=== PATIENT | female | born 1970 | race Caucasian/White ===

== ENCOUNTER 2017-02-22 15:28 | Emergency (ER) | payer SELFPAY ==
--- NOTE | 2017-02-22 17:12 | ER Document Report ---
HPI - HPI Patient complains to provider of: cyst on right wrist Onset: Other Onset/Duration: Gradual - 1 month Pain Level: 3 Context: 46-year-old female complaining of a large cyst on her distal radial volar right wrist for a month that didn't start bothering her until this week. Associated Symptoms: None Exacerbated by: Movement Relieved by: Denies Similar symptoms previously: No Recently seen / treated by doctor: No - ROS ROS below otherwise negative: Yes Systems Reviewed and Negative: Yes All other systems reviewed and negative - DERM Skin Color: Normal Past Medical History - General Information source: Patient - Social History Smoking Status: Current Every Day Smoker Frequency of alcohol use: None Drug Abuse: None Lives with: Spouse/Significant other Family History: Reviewed & Not Pertinent Patient has suicidal ideation: No Patient has homicidal ideation: No - Medical History Medical History: Negative Renal/ Medical History: Denies: Hx Peritoneal Dialysis Surgical Hx: Negative Vertical Provider Document - CONSTITUTIONAL Agree With Documented VS: Yes Exam Limitations: No Limitations - INFECTION CONTROL TRAVEL OUTSIDE OF THE [place] IN LAST 30 DAYS: No - HEENT HEENT: Normocephalic - NECK Neck: Supple - RESPIRATORY O2 Sat by Pulse Oximetry: 100 - MUSCULOSKELETAL/EXTREMETIES Musculoskeletal/Extremeties: MAEW, FROM, Tender - ganglion cyst distal volar right radial wrist, less than 1 cm, and a half centimeters smaller one next to it - NEURO Level of Consciousness: Awake, Alert, Appropriate Motor/Sensory: No Motor Deficit, No Sensory Deficit - DERM Integumentary: Warm, Dry Course - Vital Signs Vital signs: Temp Pulse Resp BP Pulse Ox 98.1 F 76 15 137/85 H 100 02/22/17 15:31 02/22/17 15:31 02/22/17 15:31 02/22/17 15:31 02/22/17 15:31 Procedures - Immobilization Right Wrist Time completed: 17:14 Pre-Proc Neuro Vasc Exam: Normal Immobilizer type: Ezio wrap Performed by: Provider Post-Proc Neuro Vasc Exam: Normal Alignment checked and good: Yes Discharge - Discharge Clinical Impression: ganglion cyst volar radial rt wrist Condition: Good Disposition: HOME, SELF-CARE Instructions: Ganglion Cyst ([facility]), Anti-Inflammatory Medication ([facility]) Additional Instructions: ezio wrap compression antii iflammatory medication see orthopedic doctor if the cyst doesn not shrink Please complete the patient satisfaction survey if you get one, and return it.. If you do not receive a survey, then you can go to the [facility] website, [email or web address] and place your comments about your very good care. Thank you very much. It was a pleasure being your medical provider today. Prescriptions: Ibuprofen [Motrin 800 mg Tablet] 800 mg PO Q8HP PRN #30 tablet PRN Reason: Forms: Return to Work Referrals: KENDRA KINNEY, [ACTIVE STAFF] - Follow up as needed
[2017-02-22 17:20] VITALS: BP 132/94
== END 2017-02-22 17:19 | disposition home or self-care (01) ==
LOC: ER 15:28
DX: M67.431 Ganglion, right wrist (principal)
CPT/HCPCS: 99282

== ENCOUNTER 2017-06-04 14:31 | Inpatient (IN) | payer SELFPAY ==
[2017-06-04] MEDS ORDERED: ONDANSETRON 4 MG TAB.RAPDIS PO ONE (15:45)
--- NOTE | 2017-06-04 15:45 | ER Document Report ---
ED Medical Screen (RME) - General Chief Complaint: Nausea/Vomiting Stated Complaint: VOMITING Time Seen by Provider: 06/04/17 15:44 Mode of Arrival: Ambulatory Information source: Patient Notes: This is a 46-year-old female that presents to the emergency room with nausea, vomiting and upper abdominal pain on and off for the past 4 days. Patient states she is new to the area and is previously lived in [facility]. She states that she was told that she had a "nonfunctioning gallbladder" years ago. She does describe having a HIDA scan and has been told she should have a gallbladder "taken out" in the past. She states however that she has not had any problems with it so she decided against surgery TRAVEL OUTSIDE OF THE [place] IN LAST 30 DAYS: No - Related Data Allergies/Adverse Reactions: No Known Allergies Allergy (Unverified 02/22/17 17:14) Past Medical History Renal/ Medical History: Denies: Hx Peritoneal Dialysis
[2017-06-04] MEDS ORDERED: NORMAL SALINE 1000 ML 1,000 ML IV PRN (15:46)
[2017-06-04 16:24] LABS: ABSOLUTE LYMPHOCYTES (AUTO) 0.5 10^3/uL (0.5-4.7); ABSOLUTE MONOCYTES (AUTO) 0.1 10^3/uL (0.1-1.4); BASOPHILS % (AUTO) 0.5 % (0-2); HEMATOCRIT 45.6 % (36.0-47.0); HEMOGLOBIN 15.4 g/dL (12.0-15.5); HGB HCT DIFFERENCE 0.6; LYMPHOCYTES % (AUTO) 10.9 % (13-45); MEAN CORPUSCULAR HEMOGLOBIN 30.5 pg (27.0-33.4); MEAN CORPUSCULAR HGB CONC 33.7 g/dL (32.0-36.0); MEAN CORPUSCULAR VOLUME 91 fl (80-97); MONOCYTES % (AUTO) 1.1 % (3-13); RED BLOOD COUNT 5.03 10^6/uL (3.72-5.28); RED CELL DISTRIBUTION WIDTH 15.3 % (11.5-14.0); SEGMENTED NEUTROPHILS % (AUTO) 86.5 % (42-78); WHITE BLOOD COUNT 4.6 10^3/uL (4.0-10.5)
[2017-06-04 16:31] LABS: ALKALINE PHOSPHATASE 328 U/L (38-126); ANION GAP 14 (5-19); BILIRUBIN,DIRECT 8.2 mg/dL (0.0-0.4); BILIRUBIN,TOTAL 9.5 mg/dL (0.2-1.3); BLOOD UREA NITROGEN 9 mg/dL (7-20); CALCIUM 9.4 mg/dL (8.4-10.2); CARBON DIOXIDE 18 mmol/L (22-30); CHLORIDE 106 mmol/L (98-107); GLUCOSE 106 mg/dL (75-110); LIPASE 40.6 U/L (23-300); POTASSIUM 4.2 mmol/L (3.6-5.0); SODIUM 138.4 mmol/L (137-145); TOTAL PROTEIN 7.5 g/dL (6.3-8.2)
[2017-06-04 16:38] LABS: ASPARTATE AMINO TRANSFERASE 1278 U/L (14-36)
[2017-06-04 16:39] LABS: ALANINE AMINOTRANSFERASE 1703 U/L (9-52)
--- NOTE | 2017-06-04 18:36 | ER Document Report ---
ED General - General Chief Complaint: Nausea/Vomiting Stated Complaint: VOMITING Time Seen by Provider: 06/04/17 15:44 Mode of Arrival: Ambulatory Notes: Patient is a 46-year-old female with a past history of polysubstance abuse including heroin abuse although she denies any recent use to me on initial assessment, prior history of a "nonfunctional gallbladder" found on a HIDA scan proximally 4 years ago but never operated on due to patient losing insurance, who presents with 4 days of right upper quadrant and epigastric abdominal pain with associated vomiting. Does describe her pain as a dull, constant, aching pain that has been gradually worsening since onset. Patient states she has been unable to tolerate oral intake at home due to the vomiting. She has also noted increasing yellowish color to her eyes and skin. She denies any history of similar symptoms in the past. Nothing improves or worsens her symptoms. She has not seen a primary care doctor regarding today's concerns. TRAVEL OUTSIDE OF THE [place] IN LAST 30 DAYS: No - Related Data Allergies/Adverse Reactions: No Known Allergies Allergy (Unverified 02/22/17 17:14) Past Medical History - General Information source: Patient - Social History Smoking Status: Current Every Day Smoker Chew tobacco use (# tins/day): No Frequency of alcohol use: None Drug Abuse: Heroin, Marijuana Lives with: Friend Family History: Reviewed & Not Pertinent Patient has suicidal ideation: No Patient has homicidal ideation: No - Past Medical History Cardiac Medical History: Reports: Hx Hypertension - "borderline" Renal/ Medical History: Denies: Hx Peritoneal Dialysis Review of Systems - Review of Systems Notes: Constitutional: Negative for fever. HENT: Negative for sore throat. Eyes: Negative for visual changes. Cardiovascular: Negative for chest pain. Respiratory: Negative for shortness of breath. Gastrointestinal: Positive for abdominal pain and vomiting Genitourinary: Negative for dysuria. Musculoskeletal: Negative for back pain. Skin: Positive for jaundice Neurological: Negative for headaches, weakness or numbness. 10 point ROS negative except as marked above and in HPI. Physical Exam - Vital signs Vitals: Temp Pulse Resp BP Pulse Ox 98.4 F 112 H 18 107/68 97 06/04/17 16:19 06/04/17 16:19 06/04/17 16:19 06/04/17 16:19 06/04/17 16:19 Interpretation: Tachycardic Notes: PHYSICAL EXAMINATION: GENERAL: Appears mildly uncomfortable but no acute distress HEAD: Atraumatic, normocephalic. EYES: Pupils equal round and reactive to light, extraocular movements intact, sclera icteric, conjunctiva are normal. ENT: nares patent, oropharynx clear without exudates. Moderately dry mucous membranes. NECK: Normal range of motion, supple without lymphadenopathy LUNGS: Breath sounds clear to auscultation bilaterally and equal. No wheezes rales or rhonchi. HEART: Regular rate and rhythm without murmurs ABDOMEN: Soft, mild tenderness to the right upper quadrant and epigastrium without rebound or guarding. Bowel sounds are present EXTREMITIES: Normal range of motion, no pitting or edema. No cyanosis. NEUROLOGICAL: No focal neurological deficits. Moves all extremities spontaneously and on command. PSYCH: Normal mood, normal affect. SKIN: Warm, Dry, jaundice Course - Re-evaluation Re-evalutation: 06/04/17 18:35 Patient presents with scleral icterus, jaundice, focal right upper quadrant epigastric abdominal pain, found to have profoundly elevated LFTs and a bilirubin level at 9.4. This is concerning for choledocholithiasis. Patient has a history apparently in the past of having a HIDA scan that showed that her gallbladder was not functioning appropriately but has not had any problems with it in the past 5-6 years so she never had any further intervention. She has never had similar symptoms today. Patient is overall in appearance, icteric skin as described above. Abdominal exam shows focal right upper quadrant tenderness but no rebound or guarding. Will proceed with MRCP and likely transfer. 06/04/17 20:32 MRCP is nondiagnostic, does not demonstrate any evidence of a common duct dilation or distal stone although the gallbladder is noted to be poorly evaluated. I discussed this case with Dr. Berry will evaluate the patient has requested right upper quadrant ultrasound. I will also add a hepatitis panel which could be an alternative etiology of patient's presentation. This case was also discussed with Dr. Gray aDhl who is agreed to admit the patient. - Vital Signs Vital signs: Temp Pulse Resp BP Pulse Ox 98.2 F 74 21 H 112/60 100 06/05/17 01:14 06/05/17 01:14 06/05/17 01:14 06/05/17 01:14 06/05/17 01:14 - Laboratory Result Diagrams: 06/04/17 16:04 06/04/17 16:04 Laboratory results interpreted by me: 06/04/17 06/04/17 06/04/17 16:04 16:04 16:04 RDW 15.3 H Seg Neutrophils % 86.5 H Lymphocytes % 10.9 L Monocytes % 1.1 L Carbon Dioxide 18 L Total Bilirubin 9.5 H Direct Bilirubin 8.2 H AST 1278 H ALT 1703 H Alkaline Phosphatase 328 H Creatine Kinase TSH Acetaminophen < 10 L 06/04/17 06/04/17 16:04 16:04 RDW Seg Neutrophils % Lymphocytes % Monocytes % Carbon Dioxide Total Bilirubin Direct Bilirubin AST ALT Alkaline Phosphatase Creatine Kinase 27 L TSH 0.45 L Acetaminophen - Diagnostic Test Radiology reviewed: Reports reviewed Discharge - Discharge Clinical Impression: Acute hepatitis, Right upper quadrant abdominal pain, Substance abuse Nausea and vomiting Qualifiers: Vomiting type: unspecified Vomiting Intractability: non-intractable Qualified Code(s): R11.2 - Nausea with vomiting, unspecified Condition: Fair Disposition: ADMITTED INPATIENT Admitting Provider: Hospitalist - [facility] Admitted: Medical Floor
[2017-06-04] MEDS: MORPHINE SULFATE 10 MG/ML INJ IV PRN ×2 (18:49→22:15)
--- NOTE | 2017-06-04 20:10 | RADIOLOGY REPORT (SQ) ---
EXAM DESCRIPTION: MRI ABDOMEN WITHOUT COMPLETED DATE/TIME: 06/04/2017 7:56 pm REASON FOR STUDY: MRCP COMPARISON: None. TECHNIQUE: Noncontrast MRCP. Source and MIP images reviewed. LIMITATIONS: None. FINDINGS: GALLBLADDER: Gallbladder is not well evaluated due to its contracted state INTRAHEPATIC DUCTS: Nondilated. EXTRAHEPATIC DUCTS: Common duct is normal caliber. No dilatation of the pancreatic duct. No ductal filling defects noted. PANCREAS: Generally homogeneous, no gross mass or significant signal alteration. No surrounding infl ammatory changes or fluid. Pancreatic duct is normal. LIVER, SPLEEN, KIDNEYS, ADRENALS: No significant abnormality. VESSELS: No evidence of aneurysm. Grossly appropriate flow voids in the major vascular structures. LUNG BASES: Grossly clear. OTHER: No other significant finding. IMPRESSION: The gallbladder is not well evaluated due to its contracted state. No dilated bile duct s are identified. Other findings as noted above TECHNICAL DOCUMENTATION: JOB ID: [id number] [employer]- All Rights Reserved
[2017-06-04 20:53] LABS: ADD ON TESTING BLD IN LAB ACKNOWLEDGE
[2017-06-04 21:21] LABS: PROTHROMBIN TIME 13.6 SEC (11.4-15.4)
[2017-06-04] MEDS ORDERED: MAG HYDROX/AL HYDROX/SIMETH SUSP 30 ML UDCUP PO PRN (21:24)
[2017-06-04] MEDS ORDERED: IPRATROPIUM/ALBUTEROL 0.5-2.5 MG/3 ML AMPUL NEB PRN (21:24)
[2017-06-04] MEDS ORDERED: NORMAL SALINE 1000 ML 1,000 ML IV SCH (21:30)
--- NOTE | 2017-06-04 21:36 | RADIOLOGY REPORT (SQ) ---
EXAM DESCRIPTION: U/S ABDOMEN LIMITED W/O DOP COMPLETED DATE/TIME: 06/04/2017 9:19 pm REASON FOR STUDY: ruq pain, elevated lfts COMPARISON: None. TECHNIQUE: Dynamic and static grayscale images acquired of the abdomen and recorded on PACS. Additio nal selected color Doppler and spectral images recorded. LIMITATIONS: Gallbladder is not well evaluated due to its contracted state FINDINGS: PANCREAS: Pancreas is incompletely visualize due to the patient's body habitus and overlyi ng bowel gas. Visualized portions of pancreatic head and body showed no pancreatic masses. LIVER: There is coarse echotexture consistent with fatty infiltration. No focal masses are identifie d. LIVER VASCULATURE: Normal blood flow is identified in the portal vein. GALLBLADDER: No stones. Normal wall thickness. No pericholecystic fluid. ULTRASOUND-DETECTED WALL'S SIGN: Negative. INTRAHEPATIC DUCTS AND COMMON DUCT: CBD and intrahepatic ducts normal caliber. No filling defects. INFERIOR VENA CAVA: Normal flow. AORTA: No aneurysm. RIGHT KIDNEY: 13.1 cm in length. Normal echogenicity. No solid or suspicious masses. No hydron ephrosis. No calcifications. PERITONEAL AND RIGHT PLEURAL SPACE: No ascites or effusions. OTHER: No other significant finding. IMPRESSION: FATTY INFILTRATION OF THE LIVER. The gallbladder was not well evaluated due to its cont racted state. No other significant intra-abdominal abnormalities were identified. TECHNICAL DOCUMENTATION: JOB ID: [id number] [employer]- All Rights Reserved
[2017-06-04 21:46] LABS: URINE BARBITURATES SCREEN NEGATIVE; URINE METHADONE SCREEN NEGATIVE; URINE OPIATES LOW UNCONFIRMED POSITIVE; URINE PHENCYCLIDINE SCREEN NEGATIVE
[2017-06-04] MEDS: ONDANSETRON HCL INJ/PF 4 MG/2 ML SDV IV PRN (22:14)
--- NOTE | 2017-06-04 22:14 | CONSULTATION REPORT E ---
Consultation Report NAME: ANA COHEN : 1970 AGE: 46Y DATE: 06/04/2017 TO: ADDI CHRISTIANSON M.D. FROM: ALDAIR BAÑUELOS M.D. Requesting Physician REFERRING PHYSICIAN: CHIEF COMPLAINT: Abnormal liver function studies. REASON FOR CONSULTATION: The patient is a 46-year-old white female with a known history of substance abuse, admits to IV drug abuse, specifically heroin, and use of p.o. opioids, presents to the emergency department complaining of dark urine, jaundice, abdominal pain, lethargy, decreased appetite, nausea and vomiting. She states she has not been able to keep anything down for several days. Last bowel movement was yesterday. The patient denies previous history of hepatitis. She reports she had a HIDA scan at [facility] approximately 4 years ago which showed an impaired ejection fraction. The patient was seen in the emergency department where she was evaluated and found to have elevated liver function studies. An MRCP nonenhanced was obtained which was nondiagnostic. Surgery was consulted. PAST MEDICAL HISTORY: 1. Obesity. 2. IV drug abuse. 3. Hypertension. PAST SURGICAL HISTORY: Previous gynecologic procedure. SOCIAL HISTORY: The patient smokes every day. FAMILY HISTORY: Noncontributory. ALLERGIES: None known. PRESCRIPTION MEDICATIONS: Not known. REVIEW OF SYSTEMS: CONSTITUTIONAL: As per HPI. CARDIOVASCULAR: Patient denies. RESPIRATORY: Patient denies. MUSCULOSKELETAL: The patient has been lethargic. PHYSICAL EXAMINATION: GENERAL: The patient is examined in the emergency department. The patient is a bit restless and anxious. She is awake, alert and oriented x4. VITAL SIGNS: Heart rate 100, blood pressure 107/68. HEENT: Eyes: Jaundiced with scleral icterus. Oropharynx: Mucous membranes are dry. SKIN/INTEGUMENT: Multiple tattoos. NECK: No adenopathy. LUNGS: Diminished in the bases bilateral. Some wheezes. ABDOMEN: Diffusely tender but no rigidity. EXTREMITIES: Lower extremities without clubbing, cyanosis or edema. LABORATORY PROFILE: Shows normal white cell count. Electrolytes show bicarb of 18. LFTs markedly elevated. Total bilirubin 9.5, AST 1278, ALT 1703, alkaline phosphatase 328. Beta hCG negative. Lipase negative. Toxicology: None checked. MRI of hepatobiliary and pancreatic tree unremarkable. IMPRESSION: 1. Acute abdominal pain, likely due to hepatobiliary dysfunction. 2. History of IV drug abuse. 3. Smoking abuse. 4. History of biliary dyskinesia by HIDA scan 4 years ago. RECOMMENDATIONS: 1. It is unclear as to the exact etiology of the patient's elevated liver function studies. Negative ERCP including normal intra and extrahepatic biliary ducts would suggest the patient does not have a common bile duct obstruction; however, MRI scans can be falsely negative. Therefore, I have asked Dr. Lynne to obtain a gallbladder ultrasound to help corroborate the negative MRI. 2. The patient is markedly dehydrated and I agree with the rehydration program. 3. The patient will likely require admission by the medicine service for further resuscitation and further evaluation of this hepatocellular problem. DICTATING PHYSICIAN: ADDI CHRISTIANSON M.D. [id number] PHY#: [id number] ID: [id number] JOB#: [id number] ACCT: [id number] cc:ADDI CHRISTIANSON M.D. > MTDD
[2017-06-04] MEDS: HEPARIN SOD (PORCINE) 5,000 UNIT/ML 1 ML SYRINGE SUBCUT SCH (22:26)
[2017-06-05] MEDS: MORPHINE SULFATE 10 MG/ML INJ IV PRN ×10 (01:07→22:47)
--- NOTE | 2017-06-05 01:52 | PDOC H&P ---
History of Present Illness Admission Date/PCP: 06/04/17 21:24 Patient complains of: Right upper quadrant abdominal pain, nausea vomiting History of Present Illness: ANA COHEN is a 46 year old female with a past medical history of morbid obesity, polysubstance abuse, recent IV heroin use, presenting after 4 days of abdominal pain nausea and vomiting. In the emergency room she has marked elevation of her LFTs suggestive of acute hepatocellular injury. She denies previous episode of hepatitis or recent Tylenol use is referred to the hospital for admission. Past Medical History Cardiac Medical History: Reports: Hypertension - "borderline" Social History Information Source: Patient Smoking Status: Current Every Day Smoker Hx Recreational Drug Use: Yes - IV heroin 10 days ago - Advance Directive Resuscitation Status: Full Code Family History Family History: COPD, Hypertension Parental Family History Reviewed: Yes Children Family History Reviewed: Yes Sibling(s) Family History Reviewed.: Yes Medication/Allergy Home Medications: Ibuprofen [Motrin 800 mg Tablet] 800 mg PO Q8HP PRN #30 tablet 02/22/17 Allergies/Adverse Reactions: No Known Allergies Allergy (Unverified 02/22/17 17:14) Review of Systems Constitutional: ABSENT: chills, fever(s), headache(s), weight gain, weight loss Eyes: ABSENT: visual disturbances Ears: ABSENT: hearing changes Cardiovascular: ABSENT: chest pain, dyspnea on exertion, edema, orthropnea, palpitations Respiratory: ABSENT: cough, hemoptysis Gastrointestinal: ABSENT: abdominal pain, constipation, diarrhea, hematemesis, hematochezia, nausea, vomiting Genitourinary: ABSENT: dysuria, hematuria Musculoskeletal: ABSENT: joint swelling Integumentary: ABSENT: rash, wounds Neurological: ABSENT: abnormal gait, abnormal speech, confusion, dizziness, focal weakness, syncope Psychiatric: ABSENT: anxiety, depression, homidical ideation, suicidal ideation Endocrine: ABSENT: cold intolerance, heat intolerance, polydipsia, polyuria Hematologic/Lymphatic: ABSENT: easy bleeding, easy bruising Physical Exam Vital Signs: Temp Pulse Resp BP Pulse Ox 98.4 F 112 H 18 107/68 97 06/04/17 16:19 06/04/17 16:19 06/04/17 16:19 06/04/17 16:19 06/04/17 16:19 General appearance: PRESENT: cooperative, disheveled, mild distress, morbidly obese Head exam: PRESENT: atraumatic, normocephalic Eye exam: PRESENT: conjunctiva pink, EOMI, PERRLA. ABSENT: scleral icterus Ear exam: PRESENT: normal external ear exam Mouth exam: PRESENT: moist, tongue midline Neck exam: ABSENT: carotid bruit, JVD, lymphadenopathy, thyromegaly Respiratory exam: PRESENT: clear to auscultation juarez. ABSENT: rales, rhonchi, wheezes Cardiovascular exam: PRESENT: RRR. ABSENT: diastolic murmur, rubs, systolic murmur Pulses: PRESENT: normal dorsalis pedis pul Vascular exam: PRESENT: normal capillary refill GI/Abdominal exam: PRESENT: normal bowel sounds, tenderness - Right upper quadrant tenderness, increased hepatic span. ABSENT: ascites, diminished bowel sounds, distended, firm, guarding, Moffett's sign, rebound, rigid Rectal exam: PRESENT: deferred Extremities exam: PRESENT: full ROM. ABSENT: calf tenderness, clubbing, pedal edema Neurological exam: PRESENT: alert, awake, oriented to person, oriented to place , oriented to time, oriented to situation, CN II-XII grossly intact. ABSENT: motor sensory deficit Psychiatric exam: PRESENT: appropriate affect, normal mood. ABSENT: homicidal ideation, suicidal ideation Skin exam: PRESENT: dry, intact, warm. ABSENT: cyanosis, rash Results Impressions: Abdomen MRI 06/04/17 18:24 IMPRESSION: The gallbladder is not well evaluated due to its contracted state. No dilated bile ducts are identified. Other findings as noted above Abdomen Ultrasound 06/04/17 20:27 IMPRESSION: FATTY INFILTRATION OF THE LIVER. The gallbladder was not well evaluated due to its contracted state. No other significant intra-abdominal abnormalities were identified. Assessment & Plan - Diagnosis (1) Acute hepatitis Is this a current diagnosis for this admission?: YesPlan: LFTs suggest hepatocellular injury infectious versus toxic etiology, patient denies sharing needles hepatitis profile and toxicology pending, symptomatic management reevaluate a.m. labs and GI consultation. (2) Substance abuse Is this a current diagnosis for this admission?: YesPlan: Consider outpatient rehab (3) Nausea and vomiting Is this a current diagnosis for this admission?: YesPlan: Secondary to acute hepatic injury medical management. - Time Time Spent: 30 to 50 Minutes - Inpatient Certification Medical Necessity: Need Close Monitoring Due to Risk of Patient Decompensation
[2017-06-05 06:06] LABS: ABSOLUTE MONOCYTES (AUTO) 0.8 10^3/uL (0.1-1.4); ABSOLUTE NEUT (AUTO) 7.2 10^3/uL (1.7-8.2); BASOPHILS % (AUTO) 0.4 % (0-2); EOSINOPHILS % (AUTO) 0.2 % (0-6); HGB HCT DIFFERENCE 1.4; LYMPHOCYTES % (AUTO) 19.5 % (13-45); MEAN CORPUSCULAR HEMOGLOBIN 31.3 pg (27.0-33.4); MEAN CORPUSCULAR HGB CONC 34.5 g/dL (32.0-36.0); MEAN CORPUSCULAR VOLUME 91 fl (80-97); RED BLOOD COUNT 4.08 10^6/uL (3.72-5.28); RED CELL DISTRIBUTION WIDTH 15.2 % (11.5-14.0); SEGMENTED NEUTROPHILS % (AUTO) 71.9 % (42-78)
[2017-06-05 06:18] LABS: HEMOGLOBIN 12.8 g/dL (12.0-15.5); WHITE BLOOD COUNT 10.1 10^3/uL (4.0-10.5)
[2017-06-05] MEDS: HEPARIN SOD (PORCINE) 5,000 UNIT/ML 1 ML SYRINGE SUBCUT SCH ×3 (06:20→21:45)
[2017-06-05] MEDS: ONDANSETRON HCL INJ/PF 4 MG/2 ML SDV IV PRN ×2 (06:20→16:06)
[2017-06-05 06:21] LABS: ALBUMIN 3.2 g/dL (3.5-5.0); ALKALINE PHOSPHATASE 226 U/L (38-126); ANION GAP 8 (5-19); BILIRUBIN,TOTAL 8.1 mg/dL (0.2-1.3); BLOOD UREA NITROGEN 7 mg/dL (7-20); CALCIUM 8.4 mg/dL (8.4-10.2); CARBON DIOXIDE 21 mmol/L (22-30); CHLORIDE 108 mmol/L (98-107); CHOLESTEROL 146.62 mg/dL (0-200); CREATININE RESULT 0.66 mg/dL (0.52-1.25); Direct HDL 16 mg/dL (>40); GLUCOSE 117 mg/dL (75-110); POTASSIUM 4.1 mmol/L (3.6-5.0); SODIUM 136.7 mmol/L (137-145); TOTAL PROTEIN 6.1 g/dL (6.3-8.2); TRIGLYCERIDES 264 mg/dL (<150)
[2017-06-05 06:32] LABS: DIRECT LDL 53 mg/dL (<100)
[2017-06-05 06:33] LABS: ALANINE AMINOTRANSFERASE 1381 U/L (9-52); ASPARTATE AMINO TRANSFERASE 992 U/L (14-36); VLDL CHOLESTEROL 52.8 mg/dL (10-31)
[2017-06-05] MEDS: DOCUSATE SODIUM 100 MG CAPSULE PO SCH ×2 (09:48→18:17)
[2017-06-05] MEDS: NICOTINE 21 MG/24 HR PATCH.TD24 TD PRN (12:57)
--- NOTE | 2017-06-05 15:05 | PDOC PROGRESS REPORT ---
Subjective Progress Note for:: 06/05/17 Subjective:: This is a follow-up visit for hepatitis and abdominal pain. I had a detailed discussion with the patient this morning. She still has right upper quadrant and epigastric abdominal pain. She discloses to me that in [place] she had had workup of her gallbladder that led to a HIDA scan. Went over the results of the HIDA scan the plan was for her to have her gallbladder removed. Unfortunately, her gallbladder surgery was limited by lack of insurance. The patient also tells me that she used heroin 11 days ago. She is had time in rehab for opioid abuse in the past. She is been using heroin through injection. She states that she is used clean needles. However, on further investigation it turns out that the patient although she has not been sharing her needles has we used her own needles in the past. She currently complains of nausea and vomiting. She also admits to using 8-10 Tylenol PM each night before bed. She says she has been doing this for the past 10 years to try and alleviate pain. She denies use of NSAIDs to include BC and Goody powders. The patient currently denies any chest pain or shortness of breath. When I mention that she seems a bit restless she states that she think it could be due to nicotine withdrawal and asked for patch. Physical Exam Vital Signs: Temp Pulse Resp BP Pulse Ox 98.2 F 73 12 105/69 99 06/05/17 11:56 06/05/17 11:56 06/05/17 11:56 06/05/17 07:29 06/05/17 11:56 Intake & Output 06/04/17 06/05/17 06/06/17 06:59 06:59 06:59 Intake Total 800 320 Output Total 500 Balance 800 -180 Weight 108.4 kg GENERAL: This is a well-developed well-nourished obese white female resting in bed currently in no acute distress. HEART: Regular rate and rhythm. No murmurs, rubs or gallops. LUNGS: Clear to auscultation bilaterally with equal rise and fall of the chest. ABDOMEN: Soft, tender to palpation in the right upper quadrant and epigastric area, nondistended. Normoactive bowel sounds. EXTREMETIES: No clubbing, cyanosis or edema. 2+ peripheral pulses bilaterally. NEURO: Awake, alert and oriented 3. Cranial nerves II through XII are grossly intact. Results Laboratory Results: 06/05/17 05:29 06/05/17 05:29 06/05/17 06/05/17 05:29 05:29 WBC 10.1 D RBC 4.08 Hgb 12.8 D Hct 37.0 MCV 91 MCH 31.3 MCHC 34.5 RDW 15.2 H Plt Count 183 Seg Neutrophils % 71.9 Lymphocytes % 19.5 Monocytes % 8.0 Eosinophils % 0.2 Basophils % 0.4 Absolute Neutrophils 7.2 Absolute Lymphocytes 2.0 Absolute Monocytes 0.8 Absolute Eosinophils 0.0 Absolute Basophils 0.0 Sodium 136.7 L Potassium 4.1 Chloride 108 H Carbon Dioxide 21 L Anion Gap 8 BUN 7 Creatinine 0.66 Est GFR ( Amer) > 60 Est GFR (Non-Af Amer) > 60 Glucose 117 H Calcium 8.4 Total Bilirubin 8.1 H AST 992 H ALT 1381 H Alkaline Phosphatase 226 H Total Protein 6.1 L Albumin 3.2 L Triglycerides 264 H Cholesterol 146.62 LDL Cholesterol Direct 53 VLDL Cholesterol 52.8 H HDL Cholesterol 16 L Impressions: Abdomen MRI 06/04/17 18:24 IMPRESSION: The gallbladder is not well evaluated due to its contracted state. No dilated bile ducts are identified. Other findings as noted above Abdomen Ultrasound 06/04/17 20:27 IMPRESSION: FATTY INFILTRATION OF THE LIVER. The gallbladder was not well evaluated due to its contracted state. No other significant intra-abdominal abnormalities were identified. Assessment & Plan - Diagnosis (1) Acute hepatitis Is this a current diagnosis for this admission?: YesPlan: The patient has multiple reasons for acute hepatitis. It should be noted that on imaging of her abdomen she also has extensive fatty liver. The patient ingested large quantities of Tylenol on a daily basis in addition to this she injects heroin and is at risk for hepatitis C. She has a history of GERD and feels that this is not currently under control. She also has a history of gallbladder issues and was supposed to have her gallbladder taken out weeks ago. Tylenol level was less than 10. Nevertheless, the patient was cautioned against using so much Tylenol. Cholesterol was also obtained. Patient will need to be started on a statin upon discharge. Await completed hepatitis panel. The patient denies that anyone else is sick. At this point in time we have consulted the GI service and we await their recommendations. The patient' s labs are already starting to trend downward. Continue pain control. (2) Abnormal TSH Plan: Check free T3 and T4. Begin thyroid hormone supplementation based on results. (3) Substance abuse Is this a current diagnosis for this admission?: YesPlan: This is episodic use. The patient has a history of abuse with opioids and recently injected heroin about 11 days ago. Monitor for withdrawal symptoms. (4) Dyslipidemia Plan: Begin statin on discharge. (5) Tobacco abuse Plan: Smoking cessation was advised. Nicotine patch was prescribed. - Time Time Spent with patient: 25-34 minutes - Inpatient Certification Medical Necessity: Significant Comorbidiites Make Outpatient Treatment Too Risky
--- NOTE | 2017-06-05 20:02 | PDOC CONSULTATION ---
Consultation Consult Date: 06/05/17 History of Present Illness Admission Date/PCP: 06/04/17 21:24 History of Present Illness: This is a 46-year-old patient who was admitted yesterday with abdominal pain, nausea, and vomiting. Her LFTs are consistent with acute hepatitis. On admission bilirubin was 9.5 with a direct of 8, AST 1200, ALT 1700 and alkaline phosphatase 328. Lipase, lipid profile, and Chem-7 were normal. She had an ultrasound that was unremarkable and an MRCP that was also unremarkable. She denies previous history of liver disease except for fatty liver noted on an ultrasound some years ago. She does abuse IV heroin and has also been using Tylenol PM 5-6 tablets every night for many years. Her Tylenol level was normal on admission. She was tested for hepatitis while in [facility] a few months ago and as far as she knows this was negative. Currently she is doing better and her pain is better. She does not abuse alcohol Past Medical History Cardiac Medical History: Reports: Hypertension - "borderline" Social History Lives with: Friend Smoking Status: Current Every Day Smoker Cigarettes Packs Per Day: 1 Frequency of Alcohol Use: None Hx Recreational Drug Use: Yes - IV heroin 10 days ago Drugs: Heroin Hx Prescription Drug Abuse: Yes - Advance Directive Resuscitation Status: Full Code Family History Family History: Reviewed & Not Pertinent Parental Family History Reviewed: No Children Family History Reviewed: NA Sibling(s) Family History Reviewed.: NA Medication/Allergy Home Medications: No Home Medications 06/05/17 Allergies/Adverse Reactions: No Known Allergies Allergy (Unverified 02/22/17 17:14) Review of Systems All systems: reviewed and no additional remarkable complaints except as stated Physical Exam Vital Signs: Temp Pulse Resp BP Pulse Ox 97.2 F 71 16 124/73 99 06/05/17 16:17 06/05/17 16:17 06/05/17 16:17 06/05/17 16:17 06/05/17 16:17 Intake & Output 06/04/17 06/05/17 06/06/17 06:59 06:59 06:59 Intake Total 800 320 Output Total 500 Balance 800 -180 Weight 108.4 kg Exam: General: Patient is alert and looks well. HEENT: There is jaundice. PERRLA. Oropharynx normal Respiratory: No chest deformity. No respiratory distress. Chest wall palpitation was unremarkable. Breath sounds were normal Cardiovascular: Heart sounds 1 and 2 normal with no murmurs. Abdominal: Not distended. Soft and nontender. Liver and spleen not palpable. No ascites demonstrated. Bowel sounds active. Rectal examination was deferred. Extremities: No edema Neurological: Alert and oriented x4. Grossly nonfocal. Normal speech Skin: No significant rash Psychological: Normal affect Results Laboratory Results: 06/05/17 05:29 06/05/17 05:29 06/05/17 06/05/17 05:29 05:29 WBC 10.1 D RBC 4.08 Hgb 12.8 D Hct 37.0 MCV 91 MCH 31.3 MCHC 34.5 RDW 15.2 H Plt Count 183 Seg Neutrophils % 71.9 Lymphocytes % 19.5 Monocytes % 8.0 Eosinophils % 0.2 Basophils % 0.4 Absolute Neutrophils 7.2 Absolute Lymphocytes 2.0 Absolute Monocytes 0.8 Absolute Eosinophils 0.0 Absolute Basophils 0.0 Sodium 136.7 L Potassium 4.1 Chloride 108 H Carbon Dioxide 21 L Anion Gap 8 BUN 7 Creatinine 0.66 Est GFR ( Amer) > 60 Est GFR (Non-Af Amer) > 60 Glucose 117 H Calcium 8.4 Total Bilirubin 8.1 H AST 992 H ALT 1381 H Alkaline Phosphatase 226 H Total Protein 6.1 L Albumin 3.2 L Triglycerides 264 H Cholesterol 146.62 LDL Cholesterol Direct 53 VLDL Cholesterol 52.8 H HDL Cholesterol 16 L Impressions: Abdomen MRI 06/04/17 18:24 IMPRESSION: The gallbladder is not well evaluated due to its contracted state. No dilated bile ducts are identified. Other findings as noted above Abdomen Ultrasound 06/04/17 20:27 IMPRESSION: FATTY INFILTRATION OF THE LIVER. The gallbladder was not well evaluated due to its contracted state. No other significant intra-abdominal abnormalities were identified. Assessment & Plan - Diagnosis (1) Acute hepatitis Is this a current diagnosis for this admission?: YesPlan: Differential diagnosis for her acute hepatitis include viral hepatitis, and drug hepatitis. She has been sent for hepatitis serology and the results are pending. Her LFTs have started to come down and the worst may be over for her. We should continue to follow the LFTs and I will see her as outpatient. She is planning to stop intravenous drug abuse and I also encouraged her to stop the daily use of Tylenol (2) Abnormal liver enzymes Is this a current diagnosis for this admission?: Yes (3) Right upper quadrant abdominal pain Is this a current diagnosis for this admission?: Yes
[2017-06-06] MEDS: ONDANSETRON HCL INJ/PF 4 MG/2 ML SDV IV PRN ×2 (01:19→16:48)
[2017-06-06] MEDS: MORPHINE SULFATE 10 MG/ML INJ IV PRN ×3 (03:09→10:02)
[2017-06-06] MEDS: HEPARIN SOD (PORCINE) 5,000 UNIT/ML 1 ML SYRINGE SUBCUT SCH ×3 (05:01→21:09)
[2017-06-06 06:07] LABS: ABSOLUTE EOSINOPHILS # (AUTO) 0.2 10^3/uL (0.0-0.6); ABSOLUTE LYMPHOCYTES (AUTO) 1.8 10^3/uL (0.5-4.7); ABSOLUTE MONOCYTES (AUTO) 0.6 10^3/uL (0.1-1.4); ABSOLUTE NEUT (AUTO) 2.4 10^3/uL (1.7-8.2); BASOPHILS % (AUTO) 0.7 % (0-2); EOSINOPHILS % (AUTO) 4.1 % (0-6); HEMATOCRIT 37.5 % (36.0-47.0); HEMOGLOBIN 12.6 g/dL (12.0-15.5); HGB HCT DIFFERENCE 0.3; LYMPHOCYTES % (AUTO) 35.3 % (13-45); MEAN CORPUSCULAR HEMOGLOBIN 30.7 pg (27.0-33.4); MEAN CORPUSCULAR HGB CONC 33.7 g/dL (32.0-36.0); MEAN CORPUSCULAR VOLUME 91 fl (80-97); MONOCYTES % (AUTO) 12.1 % (3-13); RED BLOOD COUNT 4.12 10^6/uL (3.72-5.28); RED CELL DISTRIBUTION WIDTH 15.7 % (11.5-14.0); SEGMENTED NEUTROPHILS % (AUTO) 47.8 % (42-78); WHITE BLOOD COUNT 5.1 10^3/uL (4.0-10.5)
[2017-06-06 06:27] LABS: ALKALINE PHOSPHATASE 200 U/L (38-126); ANION GAP 9 (5-19); BILIRUBIN,TOTAL 6.9 mg/dL (0.2-1.3); BLOOD UREA NITROGEN 5 mg/dL (7-20); CALCIUM 8.6 mg/dL (8.4-10.2); CARBON DIOXIDE 25 mmol/L (22-30); CHLORIDE 105 mmol/L (98-107); CREATININE RESULT 0.56 mg/dL (0.52-1.25); GLUCOSE 174 mg/dL (75-110); POTASSIUM 4.5 mmol/L (3.6-5.0); SODIUM 138.9 mmol/L (137-145); TOTAL PROTEIN 5.9 g/dL (6.3-8.2)
[2017-06-06 06:36] LABS: ALANINE AMINOTRANSFERASE 1277 U/L (9-52); ASPARTATE AMINO TRANSFERASE 864 U/L (14-36)
[2017-06-06] MEDS: DOCUSATE SODIUM 100 MG CAPSULE PO SCH ×2 (10:02→17:29)
[2017-06-06] MEDS ORDERED: MORPHINE SULFATE 10 MG/ML INJ IV PRN (10:06)
[2017-06-06] MEDS ORDERED: PANTOPRAZOLE SODIUM 40 MG VIAL IV ONE (10:45)
[2017-06-06] MEDS: NICOTINE 21 MG/24 HR PATCH.TD24 TD PRN (11:02)
--- NOTE | 2017-06-06 11:15 | PDOC PROGRESS REPORT ---
Subjective Progress Note for:: 06/06/17 Subjective:: reason for visit: f/u hepatitis, abd pain, narcotic drug use hospital course: per other's notes - "ANA COHEN is a 46 year old female with a past medical history of morbid obesity, polysubstance abuse, recent IV heroin use, presenting after 4 days of abdominal pain nausea and vomiting. In the emergency room she has marked elevation of her LFTs suggestive of acute hepatocellular injury. She denies previous episode of hepatitis or recent Tylenol use is referred to the hospital for admission This is a follow-up visit for hepatitis and abdominal pain. I had a detailed discussion with the patient this morning. She still has right upper quadrant and epigastric abdominal pain. She discloses to me that in [place] she had had workup of her gallbladder that led to a HIDA scan. Went over the results of the HIDA scan the plan was for her to have her gallbladder removed. Unfortunately, her gallbladder surgery was limited by lack of insurance. The patient also tells me that she used heroin 11 days ago. She is had time in rehab for opioid abuse in the past. She is been using heroin through injection. She states that she is used clean needles. However, on further investigation it turns out that the patient although she has not been sharing her needles has we used her own needles in the past. She currently complains of nausea and vomiting. She also admits to using 8-10 Tylenol PM each night before bed. She says she has been doing this for the past 10 years to try and alleviate pain. She denies use of NSAIDs to include BC and Goody powders. The patient currently denies any chest pain or shortness of breath. When I mention that she seems a bit restless she states that she think it could be due to nicotine withdrawal and asked for patch." still c/o sharp, stabbing, waxing/waning RUQ pain, worse with eating and certain positions, better with frequent use of morphine and asctd with persistent nausea without vomiting; also c/o severe heartburn. ROS: all systems reviewed, see above, remaining systems negative Physical Exam Vital Signs: Temp Pulse Resp BP Pulse Ox 98.1 F 68 12 119/69 98 06/06/17 09:00 06/06/17 09:00 06/06/17 09:00 06/06/17 09:00 06/06/17 09:00 Intake & Output 06/05/17 06/06/17 06/07/17 06:59 06:59 06:59 Intake Total 800 720 330 Output Total 1500 300 Balance 800 -780 30 Weight 108.4 kg 108.5 kg General appearance: PRESENT: obese, well-developed, well-nourished Head exam: PRESENT: atraumatic, normocephalic Eye exam: PRESENT: EOMI, scleral icterus. ABSENT: conjunctival injection, nystagmus Mouth exam: PRESENT: dry mucosa, neck supple Neck exam: PRESENT: full ROM. ABSENT: tenderness Respiratory exam: PRESENT: clear to auscultation juarez. ABSENT: accessory muscle use Cardiovascular exam: PRESENT: RRR. ABSENT: systolic murmur Pulses: PRESENT: normal radial pulses, normal dorsalis pedis pul GI/Abdominal exam: PRESENT: normal bowel sounds, soft, tenderness - mild tendernees of the liver edge on palpation. ABSENT: distended, guarding, rebound , rigid Extremities exam: ABSENT: calf tenderness, pedal edema Musculoskeletal exam: PRESENT: ambulatory, full ROM Neurological exam: PRESENT: alert, awake, oriented to person, oriented to place , oriented to time, oriented to situation Psychiatric exam: PRESENT: appropriate affect, normal mood Skin exam: PRESENT: dry, warm Results Laboratory Results: 06/06/17 05:21 06/06/17 05:21 06/06/17 06/06/17 06/06/17 05:21 05:21 05:21 WBC 5.1 RBC 4.12 Hgb 12.6 Hct 37.5 MCV 91 MCH 30.7 MCHC 33.7 RDW 15.7 H Plt Count 184 Seg Neutrophils % 47.8 Lymphocytes % 35.3 Monocytes % 12.1 Eosinophils % 4.1 Basophils % 0.7 Absolute Neutrophils 2.4 Absolute Lymphocytes 1.8 Absolute Monocytes 0.6 Absolute Eosinophils 0.2 Absolute Basophils 0.0 Sodium 138.9 Potassium 4.5 Chloride 105 Carbon Dioxide 25 Anion Gap 9 BUN 5 L Creatinine 0.56 Est GFR ( Amer) > 60 Est GFR (Non-Af Amer) > 60 Glucose 174 H Calcium 8.6 Magnesium 2.0 Total Bilirubin 6.9 H AST 864 H ALT 1277 H Alkaline Phosphatase 200 H Total Protein 5.9 L Albumin 3.0 L Free T4 1.73 Impressions: Abdomen MRI 06/04/17 18:24 IMPRESSION: The gallbladder is not well evaluated due to its contracted state. No dilated bile ducts are identified. Other findings as noted above Abdomen Ultrasound 06/04/17 20:27 IMPRESSION: FATTY INFILTRATION OF THE LIVER. The gallbladder was not well evaluated due to its contracted state. No other significant intra-abdominal abnormalities were identified. Status: Image reviewed by me - agree with rads Assessment & Plan - Diagnosis (1) Abnormal TSH Is this a current diagnosis for this admission?: YesPlan: low TSH; T4 normal, T3 uptake is pending (2) Acute hepatitis Is this a current diagnosis for this admission?: Yes (3) Dyslipidemia Is this a current diagnosis for this admission?: Yes (4) Right upper quadrant abdominal pain Is this a current diagnosis for this admission?: Yes (5) Substance abuse Is this a current diagnosis for this admission?: Yes (6) Tobacco abuse Is this a current diagnosis for this admission?: Yes - Time Time Spent with patient: 25-34 minutes Medications reviewed and adjusted accordingly: Yes - Plan Summary Plan Summary: advance her diet, try to change to oral pain meds and can aidanley go home in the morning if tolerating oral with f/u via GI in the future. panels still pending.
[2017-06-06 13:38] LABS: JO-1 ANTIBODY (ANACOMP) <0.2 AI (0.0-0.9)
[2017-06-06] MEDS: OXYCODONE HCL IR 5 MG TABLET PO PRN ×3 (13:54→22:23)
[2017-06-06] MEDS: PANTOPRAZOLE SODIUM 40 MG VIAL IV SCH (21:09)
[2017-06-07] MEDS: HEPARIN SOD (PORCINE) 5,000 UNIT/ML 1 ML SYRINGE SUBCUT SCH (04:59)
[2017-06-07 05:45] LABS: ABSOLUTE BASOPHILS # (AUTO) 0.1 10^3/uL (0.0-0.2); ABSOLUTE EOSINOPHILS # (AUTO) 0.2 10^3/uL (0.0-0.6); ABSOLUTE LYMPHOCYTES (AUTO) 2.1 10^3/uL (0.5-4.7); ABSOLUTE MONOCYTES (AUTO) 0.4 10^3/uL (0.1-1.4); ABSOLUTE NEUT (AUTO) 2.2 10^3/uL (1.7-8.2); BASOPHILS % (AUTO) 1.2 % (0-2); EOSINOPHILS % (AUTO) 4.5 % (0-6); HEMATOCRIT 38.9 % (36.0-47.0); HEMOGLOBIN 13.3 g/dL (12.0-15.5); LYMPHOCYTES % (AUTO) 42.1 % (13-45); MEAN CORPUSCULAR HGB CONC 34.1 g/dL (32.0-36.0); MEAN CORPUSCULAR VOLUME 91 fl (80-97); MONOCYTES % (AUTO) 8.1 % (3-13); RED BLOOD COUNT 4.29 10^6/uL (3.72-5.28); RED CELL DISTRIBUTION WIDTH 15.5 % (11.5-14.0); SEGMENTED NEUTROPHILS % (AUTO) 44.1 % (42-78); WHITE BLOOD COUNT 4.9 10^3/uL (4.0-10.5)
[2017-06-07] MEDS: OXYCODONE HCL IR 5 MG TABLET PO PRN ×2 (06:13→11:07)
[2017-06-07 06:16] LABS: ALBUMIN 3.1 g/dL (3.5-5.0); ALKALINE PHOSPHATASE 210 U/L (38-126); ANION GAP 8 (5-19); BILIRUBIN,DIRECT 6.9 mg/dL (0.0-0.4); BILIRUBIN,TOTAL 7.9 mg/dL (0.2-1.3); BLOOD UREA NITROGEN 7 mg/dL (7-20); CALCIUM 8.9 mg/dL (8.4-10.2); CARBON DIOXIDE 24 mmol/L (22-30); CHLORIDE 105 mmol/L (98-107); CREATININE RESULT 0.59 mg/dL (0.52-1.25); GLUCOSE 125 mg/dL (75-110); POTASSIUM 4.2 mmol/L (3.6-5.0); SODIUM 137.1 mmol/L (137-145); TOTAL PROTEIN 6.2 g/dL (6.3-8.2)
[2017-06-07 06:25] LABS: ALANINE AMINOTRANSFERASE 1297 U/L (9-52); ASPARTATE AMINO TRANSFERASE 1040 U/L (14-36)
[2017-06-07] MEDS: PANTOPRAZOLE SODIUM 40 MG VIAL IV SCH (09:06)
[2017-06-07] MEDS: DOCUSATE SODIUM 100 MG CAPSULE PO SCH (09:06)
[2017-06-07 11:52] VITALS: BP 136/80
--- NOTE | 2017-06-07 16:35 | PDOC DISCHARGE SUMMARY ---
General - Admit/Disc Date/PCP Admission Date/Primary Care Provider: 06/04/17 21:24 Discharge Date: 06/07/17 - Discharge Diagnosis (1) Acute hepatitis Is this a current diagnosis for this admission?: YesSummary: acute Hep C; no good data to support treatment in the acute setting with <50% success rate according to my conversation with GI. Many of these cases spontaneously resolve so she should f/u with GI in 6 wks for further eval and treatment. HepC RNA PCR and genotype sent prior to her d/c. (2) Abnormal TSH Is this a current diagnosis for this admission?: YesSummary: likely related to acute illness, T3 uptake and FT4 were both normal. (3) Substance abuse Is this a current diagnosis for this admission?: YesSummary: patient was counseled by this practitioner regarding cessation and abstinence if she is to have any chance of recovering from her HepC, especially if she turns chronic. it is unclear to me whether she will make any effort to get and stay clean. consulted therapeutic case manager to recommend outpt treatment and rehab options prior to d/c home. (4) Dyslipidemia Is this a current diagnosis for this admission?: Yes (5) Right upper quadrant abdominal pain Is this a current diagnosis for this admission?: Yes (6) Tobacco abuse Is this a current diagnosis for this admission?: Yes - Additional Information Resuscitation Status: Full Code Discharge Diet: As Tolerated Discharge Activity: Activity As Tolerated Home Medications: Diphenhydramine HCl [Benadryl 50 mg Capsule] 50 mg PO QPM 06/06/17 Nicotine [Nicoderm 21 mg/24 Hr Transderm Patch] 1 each TD DAILYP PRN patch.td24 06/07/17 Oxycodone HCl [Oxy-Ir 5 mg Tablet] 5 mg PO Q4HP PRN #10 tablet 06/07/17 Promethazine HCl [Phenergan 25 mg Tablet] 25 mg PO Q6HP PRN #20 tablet 06/07/17 History of Present Illness Patient complains of: RUQ pain History of Present Illness: ANA COHEN is a 46 year old female with a past medical history of morbid obesity, polysubstance abuse, recent IV heroin use, presenting after 4 days of abdominal pain nausea and vomiting. Hospital Course Hospital Course: In the emergency room she has marked elevation of her LFTs suggestive of acute hepatocellular injury. She denies previous episode of hepatitis or recent Tylenol use is referred to the hospital for admission This is a follow- up visit for hepatitis and abdominal pain. I had a detailed discussion with the patient this morning. She still has right upper quadrant and epigastric abdominal pain. She discloses to me that in [place] she had had workup of her gallbladder that led to a HIDA scan. Went over the results of the HIDA scan the plan was for her to have her gallbladder removed. Unfortunately, her gallbladder surgery was limited by lack of insurance. The patient also tells me that she used heroin 11 days ago. She is had time in rehab for opioid abuse in the past. She is been using heroin through injection. She states that she is used clean needles. However, on further investigation it turns out that the patient although she has not been sharing her needles has we used her own needles in the past. She currently complains of nausea and vomiting. She also admits to using 8-10 Tylenol PM each night before bed. She says she has been doing this for the past 10 years to try and alleviate pain. She denies use of NSAIDs to include BC and Goody powders. The patient currently denies any chest pain or shortness of breath. When I mention that she seems a bit restless she states that she think it could be due to nicotine withdrawal and asked for patch." GI consulted and labs confirm acute Hep C likely from her IVDA. she is tolerating a diet and her pain is easily controlled, no acute treatment indicated at this time per GI. she is f/u with GI in 3-6 wks for repeat labs, return to the ED for worsening condition, make sure to stay hydrated. Rx for short course of narcotics provided. Physical Exam Vital Signs: Temp Pulse Resp BP Pulse Ox 97.7 F 61 16 136/80 H 99 06/07/17 11:51 06/07/17 11:51 06/07/17 11:51 06/07/17 11:51 06/07/17 11:51 Intake & Output 06/06/17 06/07/17 06/08/17 06:59 06:59 06:59 Intake Total 720 1310 Output Total 1500 1400 Balance -780 -90 Weight 108.5 kg 108.7 kg General appearance: PRESENT: no acute distress, obese, well-developed Head exam: PRESENT: atraumatic, normocephalic Eye exam: PRESENT: EOMI, scleral icterus GI/Abdominal exam: PRESENT: normal bowel sounds, soft, tenderness - very mild RUQ Musculoskeletal exam: PRESENT: ambulatory Neurological exam: PRESENT: alert, awake, oriented to person, oriented to place , oriented to time Results Laboratory Results: 06/07/17 05:09 06/07/17 05:09 06/06/17 06/07/17 06/07/17 05:21 05:09 05:09 WBC 4.9 RBC 4.29 Hgb 13.3 Hct 38.9 MCV 91 MCH 31.0 MCHC 34.1 RDW 15.5 H Plt Count 199 Seg Neutrophils % 44.1 Lymphocytes % 42.1 Monocytes % 8.1 Eosinophils % 4.5 Basophils % 1.2 Absolute Neutrophils 2.2 Absolute Lymphocytes 2.1 Absolute Monocytes 0.4 Absolute Eosinophils 0.2 Absolute Basophils 0.1 Sodium 137.1 Potassium 4.2 Chloride 105 Carbon Dioxide 24 Anion Gap 8 BUN 7 Creatinine 0.59 Est GFR ( Amer) > 60 Est GFR (Non-Af Amer) > 60 Glucose 125 H Calcium 8.9 Total Bilirubin 7.9 H AST 1040 H ALT 1297 H Alkaline Phosphatase 210 H Total Protein 6.2 L Albumin 3.1 L Resin T3 Uptake 24 Impressions: Abdomen MRI 06/04/17 18:24 IMPRESSION: The gallbladder is not well evaluated due to its contracted state. No dilated bile ducts are identified. Other findings as noted above Abdomen Ultrasound 06/04/17 20:27 IMPRESSION: FATTY INFILTRATION OF THE LIVER. The gallbladder was not well evaluated due to its contracted state. No other significant intra-abdominal abnormalities were identified. Qualifiers PATEINT BEING DISCHARGED WITH ANY OF THE FOLLOWING DIAGNOSIS?: No VTE patient discharged on overlapping Therapy?: No Reason(s) for not prescribing Overlap Therapy:: Not indicated Plan Discharge Plan: home with outpt GI f/u Time Spent: Greater than 30 Minutes
[2017-06-16 14:50] LABS: HEPATITIS C QUANTITATION See Final Results IU/mL (.)
== END 2017-06-07 12:40 | disposition home or self-care (01) | DRG 443 ==
LOC: ER 14:31 → EH 21:24 → 4S 06-05 00:30
PROVIDERS: ADMIT Internal Medicine; ATTEND Internal Medicine
PROC: 3E0F73Z Introduction of Anti-inflammatory into Respiratory Tract, Via Natural or Artificial Opening (ICD-10-PCS; principal; 2017-06-05)
DX: B17.9 Acute viral hepatitis, unspecified (principal); F19.10 Other psychoactive substance abuse, uncomplicated; E78.5 Hyperlipidemia, unspecified; F11.10 Opioid abuse, uncomplicated; E66.01 Morbid (severe) obesity due to excess calories; Z68.38 Body mass index [BMI] 38.0-38.9, adult; I10 Essential (primary) hypertension; F17.210 Nicotine dependence, cigarettes, uncomplicated; R74.8 Abnormal levels of other serum enzymes; Z83.6 Family history of other diseases of the respiratory system; Z82.49 Family history of ischemic heart disease and other diseases of the circulatory system
CPT/HCPCS: 36415; 74181; 76705; 80053; 80061; 80074; 80307; 82550; 83690; 83735; 84439; 84443; 84479; 84702; 85025; 85610; 86225; 86235; 87522; 96361; 96374; 99285; J1644; J2270; J2405; J7030; S0119; S0164

== ENCOUNTER 2017-06-09 20:18 | Emergency (ER) | payer SELFPAY ==
[2017-06-09] MEDS ORDERED: ONDANSETRON HCL INJ/PF 4 MG/2 ML SDV IV ONE (20:55)
[2017-06-09] MEDS ORDERED: NORMAL SALINE 1000 ML 1,000 ML IV PRN (20:55)
[2017-06-09] MEDS ORDERED: MORPHINE SULFATE 10 MG/ML INJ IV ONE (21:06)
--- NOTE | 2017-06-09 21:11 | ER Document Report ---
ED General - General Chief Complaint: Nausea/Vomiting Stated Complaint: ABDOMINAL PAIN Time Seen by Provider: 06/09/17 20:55 Mode of Arrival: Ambulatory Information source: Patient Notes: This is a 46-year-old female with a h/o IV drug abuse with recent hospitalization for acute hepatitis who presents to the emergency room with increased weakness, continued abdominal pain, decreased p.o. intake, decreased appetite. TRAVEL OUTSIDE OF THE [place] IN LAST 30 DAYS: No - HPI Onset: Last week Onset/Duration: Gradual Quality of pain: Dull Severity: Moderate Pain Level: 2 Associated symptoms: denies: Chills, Fever, Shortness of breath Exacerbated by: Denies Relieved by: Denies Similar symptoms previously: Yes Recently seen / treated by doctor: Yes - Related Data Allergies/Adverse Reactions: No Known Allergies Allergy (Verified 06/09/17 20:34) Home Medications: Current Home Medications Promethazine HCl [Phenergan 25 mg Tablet] 1 - 2 tab PO ASDIR PRN 06/09/17 [ History] Past Medical History - General Information source: Patient - Social History Smoking Status: Current Every Day Smoker Cigarette use (# per day): Yes - Half pack per day Chew tobacco use (# tins/day): No Frequency of alcohol use: None Drug Abuse: None Lives with: Family Family History: Reviewed & Not Pertinent Patient has suicidal ideation: No Patient has homicidal ideation: No - Past Medical History Cardiac Medical History: Reports: Hx Hypertension - "borderline" Renal/ Medical History: Denies: Hx Peritoneal Dialysis Past Surgical History: Reports: Hx Tubal Ligation - Immunizations Hx Diphtheria, Pertussis, Tetanus Vaccination: Yes Review of Systems - Review of Systems Constitutional: No symptoms reported EENT: No symptoms reported Cardiovascular: No symptoms reported Respiratory: No symptoms reported Gastrointestinal: See HPI Genitourinary: No symptoms reported Female Genitourinary: No symptoms reported Musculoskeletal: No symptoms reported Skin: No symptoms reported Hematologic/Lymphatic: No symptoms reported Neurological/Psychological: No symptoms reported Physical Exam - Vital signs Vitals: Temp Pulse Resp BP Pulse Ox 98.1 F 89 16 142/89 H 97 06/09/17 20:20 06/09/17 20:20 06/09/17 20:20 06/09/17 20:20 06/09/17 20:20 Notes: Physical exam: GENERAL: 46-year-old female, alert and oriented 3, no acute distress. She is obviously jaundiced. HEAD: Atraumatic, normocephalic. EYES: Pupils equal round and reactive to light, extraocular movements intact, sclera icteric, conjunctiva are normal. ENT: TMs normal, nares patent, oropharynx clear without exudates. Moist mucous membranes. NECK: Normal range of motion, supple without lymphadenopathy or JVD. LUNGS: Breath sounds clear to auscultation bilaterally and equal. No wheezes rales or rhonchi. HEART: Regular rate and rhythm without murmurs, rubs or gallops. ABDOMEN: Soft, normoactive bowel sounds. Mild tenderness to palpation of the right upper quadrant. No guarding, no rebound. No masses appreciated. EXTREMITIES: Normal range of motion, no pitting or edema. No clubbing or cyanosis. NEUROLOGICAL: Cranial nerves II through XII grossly intact. Normal speech, normal gait. PSYCH: Normal mood, normal affect. SKIN: Obviously jaundiced, warm, Dry, normal turgor, no rashes or lesions noted. Course - Re-evaluation Re-evalutation: Note: The patient has progressive symptoms since discharge. Comparison of the labs today with previous shows a rising bilirubin (nearly 10 now) and rising AST and ALT. While the patient's coagulation studies are normal at this time, the concern is that she is going into liver failure. She has had persistent symptoms. 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 I contacted [facility] and requested transfer for so she could have a liver evaluation. I spoke with Dr. Lafleur in the emergency room who accepted the patient for ER to ER transport. Unfortunately, the next available transport is 10 AM tomorrow (from [facility]) . 06/10/17 00:23 - Vital Signs Vital signs: Temp Pulse Resp BP Pulse Ox 98.1 F 89 21 H 130/93 H 97 06/09/17 20:20 06/09/17 20:20 06/09/17 23:01 06/09/17 23:01 06/09/17 23:01 - Laboratory Result Diagrams: 06/09/17 20:27 06/09/17 20:27 Laboratory results interpreted by me: 06/09/17 06/09/17 06/09/17 20:27 20:27 20:27 RDW 16.7 H BUN 5 L Total Bilirubin 9.7 H Direct Bilirubin 8.4 H AST 1257 H ALT 1476 H Alkaline Phosphatase 229 H Acetaminophen < 10 L Discharge - Discharge Clinical Impression: Jaundice, Liver failure Condition: Serious Disposition: [facility]
[2017-06-09 21:14] LABS: ABSOLUTE BASOPHILS # (AUTO) 0.1 10^3/uL (0.0-0.2); ABSOLUTE EOSINOPHILS # (AUTO) 0.2 10^3/uL (0.0-0.6); ABSOLUTE LYMPHOCYTES (AUTO) 2.7 10^3/uL (0.5-4.7); ABSOLUTE MONOCYTES (AUTO) 0.6 10^3/uL (0.1-1.4); ABSOLUTE NEUT (AUTO) 3.3 10^3/uL (1.7-8.2); BASOPHILS % (AUTO) 1.5 % (0-2); HEMATOCRIT 42.6 % (36.0-47.0); HEMOGLOBIN 14.5 g/dL (12.0-15.5); HGB HCT DIFFERENCE 0.9; LYMPHOCYTES % (AUTO) 38.6 % (13-45); MEAN CORPUSCULAR HEMOGLOBIN 30.6 pg (27.0-33.4); MEAN CORPUSCULAR HGB CONC 34.1 g/dL (32.0-36.0); MEAN CORPUSCULAR VOLUME 90 fl (80-97); MONOCYTES % (AUTO) 8.4 % (3-13); RED BLOOD COUNT 4.75 10^6/uL (3.72-5.28); RED CELL DISTRIBUTION WIDTH 16.7 % (11.5-14.0); SEGMENTED NEUTROPHILS % (AUTO) 48.5 % (42-78); WHITE BLOOD COUNT 6.9 10^3/uL (4.0-10.5)
[2017-06-09 21:18] LABS: ALBUMIN 3.9 g/dL (3.5-5.0); ALKALINE PHOSPHATASE 229 U/L (38-126); ANION GAP 11 (5-19); BILIRUBIN,DIRECT 8.4 mg/dL (0.0-0.4); BILIRUBIN,TOTAL 9.7 mg/dL (0.2-1.3); BLOOD UREA NITROGEN 5 mg/dL (7-20); CALCIUM 9.2 mg/dL (8.4-10.2); CARBON DIOXIDE 24 mmol/L (22-30); CHLORIDE 106 mmol/L (98-107); CREATININE RESULT 0.58 mg/dL (0.52-1.25); GLUCOSE 110 mg/dL (75-110); LIPASE 42.2 U/L (23-300); POTASSIUM 4.2 mmol/L (3.6-5.0); SODIUM 140.5 mmol/L (137-145); TOTAL PROTEIN 7.4 g/dL (6.3-8.2)
[2017-06-09 21:27] LABS: ALANINE AMINOTRANSFERASE 1476 U/L (9-52); ASPARTATE AMINO TRANSFERASE 1257 U/L (14-36)
[2017-06-09 21:29] LABS: PROTHROMBIN TIME 13.5 SEC (11.4-15.4)
[2017-06-09 21:39] LABS: ANISOCYTOSIS 1+; TARGET CELLS 2+
[2017-06-09 21:40] LABS: PLATELET CLUMPS PRESENT
[2017-06-10] MEDS ORDERED: PROMETHAZINE HCL 25 MG TABLET PO PRN (00:28)
[2017-06-10] MEDS ORDERED: NORMAL SALINE 1000 ML 1,000 ML IV PRN (00:29)
[2017-06-10] MEDS: MORPHINE SULFATE 10 MG/ML INJ IV PRN ×4 (00:48→11:52)
[2017-06-10] MEDS: ONDANSETRON HCL INJ/PF 4 MG/2 ML SDV IV PRN ×3 (00:48→11:52)
[2017-06-10 13:26] VITALS: BP 145/93
--- NOTE | 2017-06-10 15:19 | EKG REPORT ---
SEVERITY:- NORMAL ECG - SINUS RHYTHM : Confirmed by: Pam Barreto MD 10-Jun-2017 15:18:58
== END 2017-06-10 14:39 | disposition short-term general hospital (02) ==
LOC: ER 20:18
DX: K72.90 Hepatic failure, unspecified without coma (principal); R53.1 Weakness; R10.9 Unspecified abdominal pain; R10.811 Right upper quadrant abdominal tenderness; R63.0 Anorexia; F17.210 Nicotine dependence, cigarettes, uncomplicated
CPT/HCPCS: 36415; 82140; 83690; 80307; 85025; 85610; 80053; 93010; J2270; J2405; J7030; 96361; 96374; 96375; 96376; 99285

== ENCOUNTER 2017-06-14 14:40 | Emergency (ER) | payer SELFPAY ==
[2017-06-14] MEDS ORDERED: NORMAL SALINE 1000 ML 1,000 ML IV PRN (15:28)
--- NOTE | 2017-06-14 15:30 | ER Document Report ---
ED Medical Screen (RME) - General Chief Complaint: Nausea/Vomiting Stated Complaint: NAUSEA Time Seen by Provider: 06/14/17 15:27 Notes: Patient complains of severe nausea and vomiting. She states she just was discharged from [facility] hospital yesterday due to complications of liver cirrhosis. 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 She states she last used IV drugs 1 month ago. Patient states she also has abdominal pain but this is the chronic pain she has with her liver disease. TRAVEL OUTSIDE OF THE [place] IN LAST 30 DAYS: No - Related Data Allergies/Adverse Reactions: pantoprazole [From Protonix] Allergy (Verified 06/14/17 14:58) promethazine [From Phenergan] Allergy (Verified 06/14/17 14:58) Past Medical History - Past Medical History Cardiac Medical History: Reports: Hx Hypertension - "borderline" Renal/ Medical History: Denies: Hx Peritoneal Dialysis Past Surgical History: Reports: Hx Tubal Ligation - Immunizations Hx Diphtheria, Pertussis, Tetanus Vaccination: Yes Physical Exam - Vital signs Vitals: Temp Pulse Resp BP Pulse Ox 98.1 F 117 H 20 135/90 H 98 06/14/17 14:51 06/14/17 14:51 06/14/17 14:51 06/14/17 14:51 06/14/17 14:51 Course - Vital Signs Vital signs: Temp Pulse Resp BP Pulse Ox 98.1 F 117 H 20 135/90 H 98 06/14/17 14:51 06/14/17 14:51 06/14/17 14:51 06/14/17 14:51 06/14/17 14:51
[2017-06-14 16:01] LABS: ABSOLUTE BASOPHILS # (AUTO) 0.1 10^3/uL (0.0-0.2); ABSOLUTE EOSINOPHILS # (AUTO) 0.2 10^3/uL (0.0-0.6); ABSOLUTE LYMPHOCYTES (AUTO) 2.6 10^3/uL (0.5-4.7); ABSOLUTE MONOCYTES (AUTO) 0.6 10^3/uL (0.1-1.4); ABSOLUTE NEUT (AUTO) 5.5 10^3/uL (1.7-8.2); EOSINOPHILS % (AUTO) 2.2 % (0-6); HEMATOCRIT 46.9 % (36.0-47.0); HEMOGLOBIN 16.1 g/dL (12.0-15.5); HGB HCT DIFFERENCE 1.4; LYMPHOCYTES % (AUTO) 29.1 % (13-45); MEAN CORPUSCULAR HEMOGLOBIN 30.7 pg (27.0-33.4); MEAN CORPUSCULAR HGB CONC 34.2 g/dL (32.0-36.0); MEAN CORPUSCULAR VOLUME 90 fl (80-97); MONOCYTES % (AUTO) 6.2 % (3-13); RED BLOOD COUNT 5.23 10^6/uL (3.72-5.28); RED CELL DISTRIBUTION WIDTH 16.5 % (11.5-14.0); SEGMENTED NEUTROPHILS % (AUTO) 61.5 % (42-78); WHITE BLOOD COUNT 8.9 10^3/uL (4.0-10.5)
--- NOTE | 2017-06-14 16:06 | ER Document Report ---
ED GI/ - General Chief Complaint: Nausea/Vomiting Stated Complaint: NAUSEA Time Seen by Provider: 06/14/17 15:27 Notes: The patient is a 46-year-old female, past medical history cirrhosis, history of IVDA (last used 1 month ago), presents with 1 week of nausea, vomiting and epigastric pain. She was discharged from [facility] yesterday for similar symptoms and was feeling much better, but her home Phenergan was not working. She cannot afford Zofran ODT, but said Zofran helps better. Patient denies hematemesis, diarrhea, constipation, fevers, chest pain, shortness of breath, urinary symptoms, flank pain or rash. TRAVEL OUTSIDE OF THE [place] IN LAST 30 DAYS: No - Related Data Allergies/Adverse Reactions: No Known Allergies Allergy (Unverified 06/14/17 15:51) Past Medical History - General Information source: Patient - Social History Smoking Status: Former Smoker Chew tobacco use (# tins/day): No Frequency of alcohol use: None Family History: Reviewed & Not Pertinent Patient has suicidal ideation: No Patient has homicidal ideation: No - Past Medical History Cardiac Medical History: Reports: Hx Hypertension - "borderline" Renal/ Medical History: Denies: Hx Peritoneal Dialysis Past Surgical History: Reports: Hx Tubal Ligation - Immunizations Hx Diphtheria, Pertussis, Tetanus Vaccination: Yes Review of Systems - Review of Systems Notes: REVIEW OF SYSTEMS: CONSTITUTIONAL: -fevers, -chills EENT: -eye pain, -difficulty swallowing, -nasal congestion CARDIOVASCULAR:-chest pain, -syncope. RESPIRATORY: -cough, -SOB GASTROINTESTINAL: +epigastric abdominal pain, +nausea, +vomiting, -diarrhea GENITOURINARY: -dysuria, -hematuria MUSCULOSKELETAL: -back pain, -neck pain SKIN: -rash or skin lesions. HEMATOLOGIC: -easy bruising or bleeding. LYMPHATIC: -swollen, enlarged glands. NEUROLOGICAL: -altered mental status or loss of consciousness, -headache, - neurologic symptoms PSYCHIATRIC: -anxiety, -depression. ALL OTHER SYSTEMS REVIEWED AND NEGATIVE. Physical Exam - Vital signs Vitals: Temp Pulse Resp BP Pulse Ox 98.1 F 117 H 20 135/90 H 98 06/14/17 14:51 06/14/17 14:51 06/14/17 14:51 06/14/17 14:51 06/14/17 14:51 - Notes Notes: PHYSICAL EXAMINATION: GENERAL: Well-appearing, well-nourished and in no acute distress. HEAD: Atraumatic, normocephalic. EYES: Pupils equal round and reactive to light, extraocular movements intact, sclera anicteric, conjunctiva are normal. ENT: nares patent, oropharynx clear without exudates. Moist mucous membranes. NECK: Normal range of motion, supple without lymphadenopathy LUNGS: Breath sounds clear to auscultation bilaterally and equal. No wheezes rales or rhonchi. HEART: Regular rate and rhythm without murmurs ABDOMEN: Soft, mild epigastric tenderness, normoactive bowel sounds. No guarding, no rebound. No masses appreciated. EXTREMITIES: Normal range of motion, no pitting or edema. No cyanosis. NEUROLOGICAL: Cranial nerves grossly intact. Normal speech, normal gait. Normal sensory and motor exams. PSYCH: Normal mood, normal affect. SKIN: Warm, Dry, normal turgor, no rashes or lesions noted. Course - Re-evaluation Re-evalutation: Patient appears very well. Her labs have all improved from prior ones. Her abdominal exam is completely nontender. Patient says that she cannot afford the Zofran ODT's and is requesting alternative prescriptions for her nausea. Case management met with patient and provided her with information about detox. Patient tolerating food in the emergency room. No ketones or anion gap to suggest severe dehydration. Provided patient with antiemetics (including instructions on how to make OTC Diclegis), GI follow-up and strict return precautions and she understands. - Vital Signs Vital signs: Temp Pulse Resp BP Pulse Ox 98.1 F 117 H 20 135/90 H 98 06/14/17 14:51 06/14/17 14:51 06/14/17 14:51 06/14/17 14:51 06/14/17 14:51 - Laboratory Result Diagrams: 06/14/17 15:40 06/14/17 16:25 Laboratory results interpreted by me: 06/14/17 06/14/17 06/14/17 15:40 15:43 16:25 Hgb 16.1 H RDW 16.5 H Glucose 118 H Total Bilirubin 4.0 H Direct Bilirubin 2.7 H AST 383 H ALT 696 H Alkaline Phosphatase 164 H Urine Protein 100 H Urine Bilirubin SMALL H Urine Urobilinogen 4.0 H Ur Leukocyte Esterase MODERATE H Discharge - Discharge Clinical Impression: Elevated LFTs Nausea and vomiting Qualifiers: Vomiting type: unspecified Vomiting Intractability: non-intractable Qualified Code(s): R11.2 - Nausea with vomiting, unspecified Condition: Good Disposition: HOME, SELF-CARE Additional Instructions: VOMITING: Vomiting (or nausea without vomiting) can be caused by many other different problems. It can mean that something's wrong with the stomach, such as ulcers or inflammation or the intestinal tract, such as appendicitis. But it can also be a symptom of a problem that has nothing to do with the stomach or intestines. Vomiting is common with severe headaches, earaches, tonsillitis, and kidney infections, etc. We see it with pneumonia or heart attacks. Drugs can cause nausea and vomiting. Many abdominal problems cause vomiting; for example, gallstones, kidney stones, pancreatitis, and intestinal obstruction ( blocked bowels). In most cases, curing the vomiting depends on fixing the problem that caused it. For temporary relief, we may use an anti-nausea medicine. For home use, we can prescribe suppositories, chewable pills, pills that dissolve in the mouth, or liquid anti-nausea drugs. If the vomiting seems to be caused by a problem in the stomach, acid-suppressing drugs may be prescribed as well. It's important to avoid dehydration. Sip small amounts of clear liquids ( soft drinks, tea, broth, etc) . Try to take fluids frequently even if you are vomiting to prevent dehydration. Take increasing amounts of fluid and when liquids are being consumed successfully, advance to small amounts of bland food (toast, soups, mashed potatoes, etc.) until you are able to resume a regular diet. Avoid aspirin, tobacco, and alcohol. If the vomiting worsens, if the problem that's making you vomit worsens, or if there's evidence of bleeding in the stomach (such as black, tarry stool, or bloody or black vomit), you should return immediately. Also, return if abdominal pain worsens or becomes localized to one area or you develop high fever. Call your doctor if you aren't improved in 24 hours. INTRAVENOUS (I V) FLUIDS: As part of your care today, you received intravenous (IV) fluids. IV fluids are administered to patients who are dehydrated or to those who have certain chemical (electrolyte) abnormalities that need correcting. ANTINAUSEA MEDICATION: You have been given a medication to suppress nausea and vomiting. This type of medication can be given as a shot, pill, or suppository. It will usually last for many hours. Pills and shots usually last six to eight hours. For the typical illness, only one or two doses of the medication may be necessary. Mild lightheadedness may occur. This type of medicine can cause drowsiness. Do not drive or operate dangerous machinery while under its influence. Do not mix with alcohol. See your doctor at once if you have muscle spasms or tightness, or uncontrollable motions (particularly of the neck, mouth, or jaw). Persistent vomiting or severe lightheadedness should also be evaluated by the physician. REGLAN (METOCLOPRAMIDE): Reglan has been prescribed. This medicine affects the stomach and intestines. It can be used to treat nausea and vomiting, to prevent reflux of stomach acid up into the esophagus, or to increase the contractions of the stomach and intestines. It is often prescribed for esophagitis, and for paralysis of the stomach in diabetics. Reglan can cause either mild restlessness or drowsiness. You should contact the doctor at once if you become extremely restless, anxious, or cannot sleep, or if you develop uncontrollable motions of the lips, tongue, or jaw. Do not take alcohol with this medicine. Do not drive or operate machinery until you have been taking this medicine long enough to know how it affects you. Call the doctor if you develop abdominal pains, lightheadedness, black stool, or blood in the stool or vomitus. FOLLOW-UP CARE: If you have been referred to a physician for follow-up care, call the physician s office for an appointment as you were instructed or within the next two days. If you experience worsening or a significant change in your symptoms, notify the physician immediately or return to the Emergency Department at any time for re-evaluation. Prescriptions: Metoclopramide HCl [Reglan 10 mg Tablet] 1 - 2 tab PO ASDIR PRN #14 tablet PRN Reason: Ondansetron HCl [Zofran 4 mg Tablet] 1 - 2 tab PO Q4H PRN #10 tablet PRN Reason: Referrals: MARY ABBASI MD [ACTIVE STAFF] - Follow up as needed
[2017-06-14 16:18] LABS: APPEARANCE,URINE CLOUDY; BILIRUBIN,URINE SMALL (NEGATIVE); GLUCOSE, URINE NEGATIVE (NEGATIVE); KETONES,URINE NEGATIVE (NEGATIVE); LEUKOCYTE ESTERASE,URINE MODERATE (NEGATIVE); NITRITE,URINE NEGATIVE (NEGATIVE); PROTEIN,URINE 100 mg/dL (NEGATIVE); URINE SPECIFIC GRAVITY 1.025
[2017-06-14 16:55] LABS: ALANINE AMINOTRANSFERASE 696 U/L (9-52); ALBUMIN 4.2 g/dL (3.5-5.0); ALKALINE PHOSPHATASE 164 U/L (38-126); ANION GAP 11 (5-19); ASPARTATE AMINO TRANSFERASE 383 U/L (14-36); BILIRUBIN,DIRECT 2.7 mg/dL (0.0-0.4); BLOOD UREA NITROGEN 10 mg/dL (7-20); CALCIUM 9.6 mg/dL (8.4-10.2); CARBON DIOXIDE 26 mmol/L (22-30); CHLORIDE 104 mmol/L (98-107); CREATININE RESULT 0.67 mg/dL (0.52-1.25); GLUCOSE 118 mg/dL (75-110); LIPASE 27.3 U/L (23-300); POTASSIUM 4.8 mmol/L (3.6-5.0); SODIUM 141.2 mmol/L (137-145); TOTAL PROTEIN 7.5 g/dL (6.3-8.2)
[2017-06-14 18:04] VITALS: BP 140/78
== END 2017-06-14 18:25 | disposition home or self-care (01) ==
LOC: ER 14:40
DX: R11.2 Nausea with vomiting, unspecified (principal); R10.13 Epigastric pain; R79.89 Other specified abnormal findings of blood chemistry; Z87.19 Personal history of other diseases of the digestive system; Z87.891 Personal history of nicotine dependence; Z98.51 Tubal ligation status
CPT/HCPCS: 99284; 36415; 83690; 85025; 81025; 80053; 81001; J7030

== ENCOUNTER 2017-06-20 21:34 | Emergency (ER) | payer SELFPAY ==
--- NOTE | 2017-06-20 22:02 | ER Document Report ---
ED General - General Chief Complaint: Fall Stated Complaint: FALL/KNEE PAIN Time Seen by Provider: 06/20/17 21:55 Notes: Patient is a 46-year-old female who presents with complaint of a fall. She tripped in the fall was mechanical. she was drinking alcohol tonight. She complains of pain mainly in her left knee. Patient says she also has just a small amount of pain over the left cheek. There is minimal. No headache. No loss conscious. No neck pain. No back pain. No upper extremity pain. No chest or abdominal pain. No other complaints at this time. TRAVEL OUTSIDE OF THE [place] IN LAST 30 DAYS: No - Related Data Allergies/Adverse Reactions: No Known Allergies Allergy (Verified 06/20/17 21:43) Past Medical History - Social History Smoking Status: Current Every Day Smoker Frequency of alcohol use: None Drug Abuse: None Family History: Reviewed & Not Pertinent - Past Medical History Cardiac Medical History: Reports: Hx Hypertension - "borderline" Renal/ Medical History: Denies: Hx Peritoneal Dialysis Past Surgical History: Reports: Hx Tubal Ligation - Immunizations Hx Diphtheria, Pertussis, Tetanus Vaccination: Yes Review of Systems - Review of Systems Notes: My Normal Review Basic REVIEW OF SYSTEMS: CONSTITUTIONAL : Denies fever, chills, or sweats. Denies recent illness. EENT: Denies eye, ear, throat, or mouth pain or symptoms. Denies nasal or sinus congestion. CARDIOVASCULAR: Denies chest pain. RESPIRATORY: Denies cough, cold, or chest congestion. Denies shortness of breath, difficulty breathing, or wheezing. GASTROINTESTINAL: Denies abdominal pain. Denies nausea, vomiting, or diarrhea. Denies constipation. Last BM: MUSCULOSKELETAL: Left knee pain SKIN: Denies rash or skin lesions. NEUROLOGICAL: Denies altered mental status or loss of consciousness. Denies headache. Denies weakness or paralysis or loss of use of either side. Denies problems with gait or speech. Denies sensory or motor loss. ALL OTHER SYSTEMS REVIEWED AND NEGATIVE. Physical Exam - Vital signs Vitals: Temp Pulse Resp BP Pulse Ox 98.2 F 114 H 18 144/99 H 96 06/20/17 21:47 06/20/17 21:47 06/20/17 21:47 06/20/17 21:47 06/20/17 21:47 - Notes Notes: General Appearance: Well nourished, alert, cooperative, no acute distress, no obvious discomfort. Vitals: reviewed, See vital signs table. Head: Palpation over the left zygomatic arch. No significant swelling. No swelling to the scalp or head her cranium. Eyes: PERRL, EOMI, Conjuctiva clear. No pain with extraocular motion. Mouth: No decreasd moisture Neck: Supple, no neck tenderness, No step-offs or deformities. Lungs: No wheezing, No rales, No rhonci, No accessory muscle use, good air exchange bilaterally. Heart: Normal rate, Regular rythm, No murmur, no rub Abdomen: Normal BS, soft, No rigidity, No abdominal tenderness, No guarding, no rebound, no abdominal masses, no organomegaly Extremities: strength 5/5 in all extremities, good pulses in all extremities, no swelling or tenderness in the extremities pain to palpation over the patella and medial aspect of the left knee. No swelling or bruising to the knee. Remainder of left lower extremity is nontender., no edema. Skin: warm, dry, appropriate color, no rash Neuro: speech clear, oriented x 3, normal affect, responds appropriately to questions. Cranial nerves II through XII are intact. Distal sensation intact. Patient moves all extremities without difficulty. Course - Re-evaluation Re-evalutation: 06/21/17 00:02 I did inform the patient that her x-ray is negative. Patient's speech is clear and she is clinically sober and acting appropriately. The nurse did give her crutches with crutch training. The nurse says she was able to use the crutches without any difficulty and had no staggering or balance issues. Patient will be discharged home. I encouraged her to return to the ER if she has difficulty ambulating or worsening pain. She is to follow-up closely with her primary care doctor. Patient agrees with plan and will be discharged home. Dictation of this chart was performed using voice recognition software; therefore, there may be some unintended grammatical errors. - Vital Signs Vital signs: Temp Pulse Resp BP Pulse Ox 98.2 F 114 H 18 144/99 H 96 06/20/17 21:47 06/20/17 21:47 06/20/17 21:47 06/20/17 21:47 06/20/17 21:47 Discharge - Discharge Clinical Impression: Strain of left knee Qualifiers: Encounter type: initial encounter Qualified Code(s): S86.912A - Strain of unspecified muscle(s) and tendon(s) at lower leg level, left leg, initial encounter Condition: Good Disposition: HOME, SELF-CARE Additional Instructions: Your x-ray is negative for any fracture. He may still have a strain or ligamentous injury to her knee. Please wear the Ezio wrap and use crutches until you are not having pain with ambulation any further. Please follow-up with your doctor for reevaluation in 5-7 days. Please return to the ER if you have worsening pain, swelling, or if you feel unwell.
--- NOTE | 2017-06-20 22:35 | RADIOLOGY REPORT (SQ) ---
EXAM DESCRIPTION: KNEE LEFT 4 VIEW COMPLETED DATE/TIME: 06/20/2017 10:26 pm REASON FOR STUDY: trauma COMPARISON: None. NUMBER OF VIEWS: Four views. TECHNIQUE: AP, lateral, and both oblique radiographic images acquired of the left knee. LIMITATIONS: None. FINDINGS: MINERALIZATION: Normal. BONES: No acute fracture or dislocation. No worrisome bone lesions. JOINT: No effusion. SOFT TISSUES: No soft tissue swelling. No radio-opaque foreign body. OTHER: No other significant finding. IMPRESSION: NEGATIVE STUDY OF THE LEFT KNEE. NO RADIOGRAPHIC EVIDENCE OF ACUTE INJURY. TECHNICAL DOCUMENTATION: JOB ID: [id number] [employer]- All Rights Reserved
[2017-06-21 00:03] VITALS: BP 122/86
== END 2017-06-21 00:02 | disposition home or self-care (01) ==
LOC: ER 21:34
DX: S86.912A Strain of unspecified muscle(s) and tendon(s) at lower leg level, left leg, initial encounter (principal); M25.562 Pain in left knee; F17.200 Nicotine dependence, unspecified, uncomplicated; W19.XXXA Unspecified fall, initial encounter
CPT/HCPCS: 99283

== ENCOUNTER 2017-06-22 14:37 | Emergency (ER) | payer SELFPAY ==
[2017-06-22] MEDS ORDERED: OXYCODONE HCL IR 5 MG TABLET PO ONE (15:28)
[2017-06-22] MEDS ORDERED: PROMETHAZINE HCL 25 MG TABLET PO ONE (15:28)
--- NOTE | 2017-06-22 15:31 | ER Document Report ---
ED Medical Screen (RME) - General Chief Complaint: Knee Pain Stated Complaint: LEFT FOOT PAIN Time Seen by Provider: 06/22/17 15:27 Notes: Patient is complaining of severe pain in her left knee. She sustained a fall [place] and injured her left knee in some fashion. She was seen here and says that x-rays were done and she was given crutches and an Ezio wrap to the knee. She says that she is unable to bend or straighten the knee since yesterday. It is painful to put weight on. On exam, patient has a small amount of weakness of the inner aspect of the left knee, corresponding to the medial collateral ligament. There is diffuse fluid collection in the knee compared to the right knee. I do not think she has evidence of a DVT on physical exam.. Patient has a history of hepatitis C and is being evaluated for [facility] She recently had an episode of liver failure with jaundice, etc. and was transferred to [place] for care. TRAVEL OUTSIDE OF THE [place] IN LAST 30 DAYS: No - Related Data Allergies/Adverse Reactions: No Known Allergies Allergy (Verified 06/20/17 21:43) Past Medical History - Social History Chew tobacco use (# tins/day): No Frequency of alcohol use: Occasional Drug Abuse: None - Past Medical History Cardiac Medical History: Reports: Hx Hypertension - "borderline" Renal/ Medical History: Denies: Hx Peritoneal Dialysis Past Surgical History: Reports: Hx Tubal Ligation - Immunizations Hx Diphtheria, Pertussis, Tetanus Vaccination: Yes Physical Exam - Vital signs Vitals: Temp Pulse Resp BP Pulse Ox 98.2 F 122 H 20 163/95 H 96 06/22/17 14:52 06/22/17 14:52 06/22/17 14:52 06/22/17 14:52 06/22/17 14:52 Course - Vital Signs Vital signs: Temp Pulse Resp BP Pulse Ox 98.2 F 122 H 20 163/95 H 96 06/22/17 14:52 06/22/17 14:52 06/22/17 14:52 06/22/17 14:52 06/22/17 14:52
[2017-06-22 16:05] LABS: ABSOLUTE BASOPHILS # (AUTO) 0.1 10^3/uL (0.0-0.2); ABSOLUTE EOSINOPHILS # (AUTO) 0.2 10^3/uL (0.0-0.6); ABSOLUTE LYMPHOCYTES (AUTO) 2.1 10^3/uL (0.5-4.7); ABSOLUTE MONOCYTES (AUTO) 0.7 10^3/uL (0.1-1.4); ABSOLUTE NEUT (AUTO) 4.5 10^3/uL (1.7-8.2); BASOPHILS % (AUTO) 0.8 % (0-2); EOSINOPHILS % (AUTO) 3.1 % (0-6); HEMATOCRIT 38.4 % (36.0-47.0); HEMOGLOBIN 13.2 g/dL (12.0-15.5); HGB HCT DIFFERENCE 1.2; LYMPHOCYTES % (AUTO) 27.9 % (13-45); MEAN CORPUSCULAR HEMOGLOBIN 31.1 pg (27.0-33.4); MEAN CORPUSCULAR HGB CONC 34.4 g/dL (32.0-36.0); MEAN CORPUSCULAR VOLUME 90 fl (80-97); MONOCYTES % (AUTO) 8.6 % (3-13); RED BLOOD COUNT 4.25 10^6/uL (3.72-5.28); RED CELL DISTRIBUTION WIDTH 16.5 % (11.5-14.0); SEGMENTED NEUTROPHILS % (AUTO) 59.6 % (42-78); WHITE BLOOD COUNT 7.6 10^3/uL (4.0-10.5)
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
[2017-06-22 16:23] LABS: ALANINE AMINOTRANSFERASE 184 U/L (9-52); ALBUMIN 4.3 g/dL (3.5-5.0); ALKALINE PHOSPHATASE 93 U/L (38-126); ANION GAP 10 (5-19); ASPARTATE AMINO TRANSFERASE 65 U/L (14-36); BILIRUBIN,DIRECT 1.3 mg/dL (0.0-0.4); BILIRUBIN,TOTAL 1.9 mg/dL (0.2-1.3); BLOOD UREA NITROGEN 10 mg/dL (7-20); CALCIUM 9.4 mg/dL (8.4-10.2); CARBON DIOXIDE 26 mmol/L (22-30); CHLORIDE 104 mmol/L (98-107); CREATININE RESULT 0.62 mg/dL (0.52-1.25); GLUCOSE 120 mg/dL (75-110); POTASSIUM 4.4 mmol/L (3.6-5.0); SODIUM 139.9 mmol/L (137-145); TOTAL PROTEIN 7.4 g/dL (6.3-8.2)
--- NOTE | 2017-06-22 16:40 | RADIOLOGY REPORT (SQ) ---
EXAM DESCRIPTION: TIBIA FIBULA LEFT COMPLETED DATE/TIME: 06/22/2017 4:22 pm REASON FOR STUDY: fall, pain COMPARISON: None. NUMBER OF VIEWS: Four views. TECHNIQUE: Two radiographic images acquired of the left tibia and fibula to include the knee and ank le in at least one projection. LIMITATIONS: None. FINDINGS: MINERALIZATION: Normal. BONES: No acute fracture or dislocation. No worrisome bone lesions. Small bony density along the ti p of the lateral malleolus either accessory ossicle or old avulsion fracture. Chronic appearing irre gularity of the medial malleolus. Small calcaneal spur at the insertion of the plantar aponeurosis w ith small spur off the anterior talus. SOFT TISSUES: No obvious swelling or foreign body. OTHER: No other significant finding. IMPRESSION: No evidence of acute fracture involving the left lower leg. TECHNICAL DOCUMENTATION: JOB ID: [id number] [employer]- All Rights Reserved
[2017-06-22 18:15] VITALS: BP 139/96
== END 2017-06-22 18:00 | disposition home or self-care (01) ==
LOC: ER 14:37
DX: S80.02XA Contusion of left knee, initial encounter (principal); W17.89XA Other fall from one level to another, initial encounter; F17.200 Nicotine dependence, unspecified, uncomplicated
CPT/HCPCS: 99283; 36415; 85025; 85610; 80053; 73590; L1830

== ENCOUNTER 2017-08-17 23:04 | Emergency (ER) | payer SELFPAY ==
[2017-08-18] MEDS ORDERED: KETOROLAC TROMETHAMINE 60 MG/2 ML SDV IM ONE (02:05)
[2017-08-18] MEDS ORDERED: DIAZEPAM INJ 10 MG/2 ML DISP.SYRIN IM ONE (02:05)
--- NOTE | 2017-08-18 02:56 | ER Document Report ---
ED Extremity Problem, Lower - General Chief Complaint: Leg Pain Stated Complaint: LEG PAIN Time Seen by Provider: 08/18/17 01:44 Mode of Arrival: Ambulatory Information source: Patient TRAVEL OUTSIDE OF THE [place] IN LAST 30 DAYS: No - HPI Patient complains to provider of: Pain Location: Back, Leg Occurred: This afternoon Onset/Duration: Gradual, Persistent, Worse Quality of pain: Achy, Burning Severity: Moderate Pain Level: 4 Recent injury: No Exacerbated by: Movement Relieved by: Nothing Notes: Patient is a 46-year-old female presenting to the emergency room today complaining of right posterior leg pain that started earlier in the day, shoots down the leg and she cannot find a comfortable position, she does have a history of degenerative disc disease, denies any bowel or bladder dysfunction, she does report some tingling and numbness sensation on the lateral portion of the right thigh but denies any numbness or tingling in the groin area, patient denies any recent injury or trauma - Related Data Allergies/Adverse Reactions: No Known Allergies Allergy (Verified 06/20/17 21:43) Past Medical History - General Information source: Patient - Social History Smoking Status: Unknown if Ever Smoked Family History: Reviewed & Not Pertinent Patient has suicidal ideation: No Patient has homicidal ideation: No - Past Medical History Cardiac Medical History: Reports: Hx Hypertension - "borderline" Renal/ Medical History: Denies: Hx Peritoneal Dialysis Past Surgical History: Reports: Hx Tubal Ligation - Immunizations Hx Diphtheria, Pertussis, Tetanus Vaccination: Yes Review of Systems - Review of Systems Constitutional: No symptoms reported EENT: No symptoms reported Cardiovascular: No symptoms reported Respiratory: No symptoms reported Gastrointestinal: No symptoms reported Genitourinary: No symptoms reported Female Genitourinary: No symptoms reported Musculoskeletal: See HPI Skin: No symptoms reported Hematologic/Lymphatic: No symptoms reported Neurological/Psychological: No symptoms reported -: Yes All other systems reviewed and negative Physical Exam - Vital signs Vitals: Temp Pulse Resp BP Pulse Ox 97.8 F 101 H 20 134/94 H 97 08/17/17 23:42 08/17/17 23:42 08/17/17 23:42 08/17/17 23:42 08/17/17 23:42 - Notes Notes: - General General appearance: Appears well, Alert In distress: None - HEENT Head: Normocephalic, Atraumatic Eyes: Normal Conjunctiva: Normal Extraocular movements intact: Yes Eyelashes: Normal Pupils: PERRL - Respiratory Respiratory status: No respiratory distress - Cardiovascular Rhythm: Regular - Abdominal Inspection: Normal - Back Back: Tenderness to palpate in the right buttock radiating down the leg, positive straight leg raise - Extremities General upper extremity: Normal inspection General lower extremity: Normal inspection - Neurological Neuro grossly intact: Yes Orientation: AAOx4 Breanna Coma Scale Eye Opening: Spontaneous [place] Coma Scale Verbal: Oriented [place] Coma Scale Motor: Obeys Commands [place] Coma Scale Total: 15 - Psychological Associated symptoms: Normal affect, Normal mood - Skin Skin Temperature: Warm Skin Moisture: Dry Skin Color: Normal Course - Re-evaluation Re-evalutation: 08/18/17 03:29 Patient has a history of degenerative disc disease, her symptoms are consistent with sciatica down the right leg, she has no saddle anesthesia and no bowel or bladder dysfunction so I have little concern for cauda equina syndrome or other emergent pathology, patient was given a shot of Toradol and Valium in the emergency department and reports some improvement of symptoms, she was discharged with pain medication and instructions for follow-up, advised to return if any additional concerns, patient acknowledges understanding and agreement with this plan - Vital Signs Vital signs: Temp Pulse Resp BP Pulse Ox 97.8 F 101 H 20 134/94 H 97 08/17/17 23:42 08/17/17 23:42 08/17/17 23:42 08/17/17 23:42 08/17/17 23:42 Discharge - Discharge Clinical Impression: Low back pain Qualifiers: Chronicity: acute Back pain laterality: right Sciatica presence: with sciatica Sciatica laterality: sciatica of right side Qualified Code(s): M54.41 - Lumbago with sciatica, right side Sciatica Qualifiers: Laterality: right Qualified Code(s): M54.31 - Sciatica, right side Condition: Stable Disposition: HOME, SELF-CARE Instructions: Low Back Pain ([facility]), Sciatica ([facility]) Additional Instructions: Follow up with your primary care provider in one to 2 days. Return to the emergency room immediately if symptoms worsen or any additional concerns. Prescriptions: Hydrocodone/Acetaminophen [Hydrocodon-Acetaminophen 5-325] 1 each PO Q6 #20 tablet
[2017-08-18 03:31] VITALS: BP 117/68
== END 2017-08-18 03:25 | disposition home or self-care (01) ==
LOC: ER 23:04
DX: M54.41 Lumbago with sciatica, right side (principal); Z98.51 Tubal ligation status
CPT/HCPCS: 99283; 96372; J3360; J1885